=== PATIENT | female | born 1980 | race Caucasian/White ===

== ENCOUNTER 2020-06-06 14:37 | Outpatient (REF) | payer OTHER, SELFPAY ==
--- NOTE | ~2020-06-06 | US_ITS ---
EXAMINATION: US PELVIS, COMPLETE CLINICAL INFORMATION: Menorrhagia. COMPARISON: 02/16/2010 TECHNIQUE: Transabdominal and transvaginal imaging was performed. FINDINGS: LMP: 05/27/2020 Uterus is anteverted , measuring 10.7 x 5 x 6.8 cm. Heterogeneous echotexture of the uterine parenchyma. No focal marginated lesions are identified. There are nabothian cysts present in the cervix. Endometrial thickness 0.9 cm. Limited visualization of the ovaries due to bowel gas. Right ovary measures 2.9 x 2.3 x 2.8 cm. Volume 9.8 mL. Left ovary measures 2.4 x 2.1 x 2.2 cm. Volume 5.8 mL. The partially visualized ovaries grossly appear unremarkable. No free fluid in the cul-de-sac. US/US transvaginal IMPRESSION: Limited visualization of the uterus and ovaries due to bowel gas. Heterogeneous echotexture of the uterine parenchyma. No discrete focal lesions identified. Limited visualization of bilateral ovaries. No gross abnormality identified. Follow-up ultrasound for reassessment could be considered for better visualization, as clinically warranted.
--- NOTE | ~2020-06-06 | US_ITS ---
EXAMINATION: US PELVIS, COMPLETE CLINICAL INFORMATION: Menorrhagia. COMPARISON: 02/16/2010 TECHNIQUE: Transabdominal and transvaginal imaging was performed. FINDINGS: LMP: 05/27/2020 Uterus is anteverted , measuring 10.7 x 5 x 6.8 cm. Heterogeneous echotexture of the uterine parenchyma. No focal marginated lesions are identified. There are nabothian cysts present in the cervix. Endometrial thickness 0.9 cm. Limited visualization of the ovaries due to bowel gas. Right ovary measures 2.9 x 2.3 x 2.8 cm. Volume 9.8 mL. Left ovary measures 2.4 x 2.1 x 2.2 cm. Volume 5.8 mL. The partially visualized ovaries grossly appear unremarkable. No free fluid in the cul-de-sac. US/US pelvic complete IMPRESSION: Limited visualization of the uterus and ovaries due to bowel gas. Heterogeneous echotexture of the uterine parenchyma. No discrete focal lesions identified. Limited visualization of bilateral ovaries. No gross abnormality identified. Follow-up ultrasound for reassessment could be considered for better visualization, as clinically warranted.
== END 2020-06-06 14:38 | disposition home or self-care (01) ==
LOC: HO.US 14:37
PROVIDERS: PCP Internal Medicine; Visit Provider Internal Medicine
DX: N92.0 Excessive and frequent menstruation with regular cycle (principal)
CPT/HCPCS: 76830; 76856

== ENCOUNTER 2022-07-03 12:03 | Outpatient (REF) | payer OTHER, SELFPAY ==
[2022-07-03 13:45] LABS: MANUAL DIFF FLAG NO
[2022-07-03 13:55] LABS: Basophils Absolute Auto 0.1 X10*3/uL (0.0-0.2); Basophils Percent Auto 0.8 % (0-2); Eosinophils Absolute Auto 0.2 X10*3/uL (0.0-0.4); Eosinophils Percent Auto 1.9 % (0-4); Hematocrit 29.2 % (37.0-47.0); Hemoglobin 7.8 g/dl (12.0-16.0); Imm Gran Abs Auto 0.03 X10*3/uL (0.00-0.03); Imm Gran Pct Auto 0.4 % (0.0-0.4); Lymphocytes Absolute Auto 1.7 X10*3/uL (1.2-4.9); Lymphocytes Percent Auto 19.3 % (20-40); Mean Corpuscular HGB Conc 26.7 g/dl (31.0-35.0); Mean Corpuscular Hemoglobin 16.3 pg (27.0-33.0); Mean Platelet Volume 9.8 fL (9.4-12.3); Monocytes Absolute Auto 0.4 X10*3/uL (0.1-1.2); Monocytes Percent Auto 4.9 % (2-11); Neutrophils Absolute Auto 6.2 x10*3/uL (2.0-8.3); Neutrophils Percent Auto 72.7 % (45-73); Platelet Count 565 X10*3/uL (160-400); Red Blood Count 4.78 X10*6/uL (4.20-5.50); Red Cell Distribution Width 19.1 % (11.0-16.0); White Blood Count 8.5 X10*3/uL (4.8-10.8)
[2022-07-03 13:56] LABS: Mean Corpuscular Volume 61.1 fL (80.0-98.0)
[2022-07-03 14:23] LABS: Alanine Aminotransferase 27 U/L (0-31); Albumin Level 4.1 g/dL (3.5-5.0); Alkaline Phosphatase 65 U/L (39-117); Anion Gap 13 (12-20); Aspartate Amino Transferase 21 U/L (5-31); Bilirubin Total 0.4 mg/dL (0.0-1.0); Blood Urea Nitrogen 11 mg/dL (9-16); Calcium 9.6 mg/dL (8.4-10.2); Carbon Dioxide 27 mmol/L (22-29); Chloride 106 mmol/L (96-108); Estimated Glomerular Filt Rate > 60; Glucose Random 158 mg/dL (60-115); Potassium 4.5 mmol/L (3.3-5.1); Sodium 141 mmol/L (135-145); Total Protein 7.4 g/dL (6.5-8.0)
[2022-07-03 14:37] LABS: Ferritin 3 ng/mL (10-250)
== END 2022-07-03 12:04 | disposition home or self-care (01) ==
LOC: HO.10HDL 12:03
PROVIDERS: Visit Provider Internal Medicine
DX: R22.0 Localized swelling, mass and lump, head (principal); H92.02 Otalgia, left ear; D50.8 Other iron deficiency anemias
CPT/HCPCS: 36415; 80053; 82728; 85025

== ENCOUNTER 2022-08-19 13:20 | Outpatient (REF) | payer OTHER, SELFPAY | END 2022-08-19 13:21 | disposition home or self-care (01) | LOC: HO.MDS 13:20 | PROVIDERS: Visit Provider Internal Medicine | DX: D50.9 Iron deficiency anemia, unspecified (principal) | CPT/HCPCS: 96365; J1756 ==

== ENCOUNTER 2022-08-26 13:25 | Outpatient (REF) | payer OTHER, SELFPAY | END 2022-08-26 13:26 | disposition home or self-care (01) | LOC: HO.MDS 13:25 | PROVIDERS: Visit Provider Internal Medicine | DX: D50.9 Iron deficiency anemia, unspecified (principal) | CPT/HCPCS: 96365; J1756 ==

== ENCOUNTER 2022-09-02 13:03 | Outpatient (REF) | payer OTHER, SELFPAY | END 2022-09-02 13:04 | disposition home or self-care (01) | LOC: HO.MDS 13:03 | PROVIDERS: Visit Provider Internal Medicine | DX: D50.9 Iron deficiency anemia, unspecified (principal) | CPT/HCPCS: 96365; J1756 ==

== ENCOUNTER 2022-09-05 11:18 | Outpatient (REF) | payer OTHER, SELFPAY ==
[2022-09-05 13:11] LABS: MANUAL DIFF FLAG NO
[2022-09-05 13:17] LABS: Basophils Absolute Auto 0.1 X10*3/uL (0.0-0.2); Basophils Percent Auto 0.9 % (0-2); Eosinophils Absolute Auto 0.2 X10*3/uL (0.0-0.4); Eosinophils Percent Auto 3.2 % (0-4); Hematocrit 34.6 % (37.0-47.0); Hemoglobin 9.5 g/dl (12.0-16.0); Imm Gran Abs Auto 0.03 X10*3/uL (0.00-0.03); Imm Gran Pct Auto 0.5 % (0.0-0.4); Lymphocytes Absolute Auto 1.3 X10*3/uL (1.2-4.9); Lymphocytes Percent Auto 19.6 % (20-40); Mean Corpuscular HGB Conc 27.5 g/dl (31.0-35.0); Mean Corpuscular Hemoglobin 18.6 pg (27.0-33.0); Mean Corpuscular Volume 67.7 fL (80.0-98.0); Mean Platelet Volume 10.6 fL (9.4-12.3); Monocytes Absolute Auto 0.4 X10*3/uL (0.1-1.2); Monocytes Percent Auto 5.3 % (2-11); Neutrophils Absolute Auto 4.7 x10*3/uL (2.0-8.3); Neutrophils Percent Auto 70.5 % (45-73); Platelet Count 396 X10*3/uL (160-400); Red Blood Count 5.11 X10*6/uL (4.20-5.50); Red Cell Distribution Width 26.8 % (11.0-16.0); White Blood Count 6.6 X10*3/uL (4.8-10.8)
[2022-09-05 13:27] LABS: Estimated Average Glucose 85 mg/dL; Hemoglobin A1c % 4.6 %
== END 2022-09-05 11:19 | disposition home or self-care (01) ==
LOC: HO.10HDL 11:18
PROVIDERS: Visit Provider Internal Medicine
DX: D50.8 Other iron deficiency anemias (principal); F32.9 Major depressive disorder, single episode, unspecified; R42 Dizziness and giddiness; R55 Syncope and collapse; R73.01 Impaired fasting glucose
CPT/HCPCS: 36415; 83036; 85025

== ENCOUNTER 2022-09-10 13:30 | Outpatient (REF) | payer OTHER, SELFPAY | END 2022-09-10 13:31 | disposition home or self-care (01) | LOC: HO.MDS 13:30 | PROVIDERS: Visit Provider Internal Medicine | DX: D50.9 Iron deficiency anemia, unspecified (principal) | CPT/HCPCS: 96365; J1756 ==

== ENCOUNTER 2022-09-23 13:49 | Outpatient (REF) | payer OTHER, SELFPAY | END 2022-09-23 13:50 | disposition home or self-care (01) | LOC: HO.MDS 13:49 | PROVIDERS: Visit Provider Internal Medicine | DX: D53.9 Nutritional anemia, unspecified (principal) | CPT/HCPCS: 96365; J1756 ==

== ENCOUNTER 2022-10-01 12:51 | Outpatient (REF) | payer OTHER, SELFPAY | END 2022-10-01 12:52 | disposition home or self-care (01) | LOC: HO.MDS 12:51 | PROVIDERS: Visit Provider Internal Medicine | DX: D50.9 Iron deficiency anemia, unspecified (principal) | CPT/HCPCS: 96365; 99202; J1756 ==

== ENCOUNTER 2022-10-04 16:24 | Outpatient (REF) | payer OTHER, SELFPAY ==
--- NOTE | ~2022-10-04 | US_ITS ---
EXAMINATION: US PELVIS CLINICAL INFORMATION: Abnormal uterine and vaginal bleeding COMPARISON: None available. TECHNIQUE: Ultrasound of the pelvis is performed using both transabdominal and transvaginal transducers along with Doppler. Transvaginal imaging is performed due to inadequate visualization transabdominally. FINDINGS: Uterus: The uterus is anteverted, anteflexed and prominent size measuring 12.4 x 4.5 x 5.7. Previous measurement was 10.7 x 5 x 6.8 cm. Echogenicity is diffusely heterogeneous. No visible fibroid. Endometrium measures 0.8 cm. Incidental note is made of nabothian cysts. Adnexa: Both ovaries are visualized. There is normal color flow to the adnexa. There is no pelvic ascites or fluid collection. Right ovary measures 3.3 x 1.9 x 2.7 cm. For a volume of 8.9 mL. Previous measurement was 2.9 x 2.3 x 2.8 cm. Left ovary measures 2.6 x 1.9 x 3.2 cm. For a volume of 8.3 mL. Previous measurement was 2.4 x 2.1 x 2.2 cm. US/US pelvic and transvaginal IMPRESSION: Slight increase in size persistently enlarged and heterogeneous uterus without focal fibroid. Unremarkable ovaries.
== END 2022-10-04 16:25 | disposition home or self-care (01) ==
LOC: HO.US 16:24
PROVIDERS: PCP Internal Medicine; Visit Provider Obstetrics & Gynecology
DX: N93.9 Abnormal uterine and vaginal bleeding, unspecified (principal)
CPT/HCPCS: 76830; 76856

== ENCOUNTER 2023-01-07 10:01 | Outpatient (AMB) | payer OTHER, SELFPAY ==
[2023-01-07 10:30] VITALS: BP 122/74; BMI 40.0
--- NOTE | 2023-01-07 10:30 | MHC.OFFVIS ---
Intake Vital Signs 01/07/23 10:30 Height 5 ft Weight 205 lb BMI 40.0 BP 122/74 Intake Visit Reasons: Ultrasound follow up Signals Officer Required: No Allergies seafood Allergy (Mild, Verified 01/07/23 10:30) Anaphylaxis Is last menstrual period known: Yes Last menstrual period: 12/25/22 Post menopausal: No Patient : No HPI HPI Comments History of Present Illness Details Presenting for ultrasound follow-up, pelvic exam, co testing and EMB for AUB. The patient did not have her blood work done yet. PFSH Medical History History of cardiac monitoring Epileptic Surgical History Hx of section Hx of tubal ligation Social History Alcohol intake: never Patient Tobacco Use Status: Never used Tobacco Patient : No Female Reproductive History Menstrual Age of Menarche: 14 Date of last menstrual period: 12/25/22 control method: permanent sterilization Review of Systems Const All systems reviewed & are unremarkable except as noted in HPI and below Card Reports as per HPI Resp Reports as per HPI GI Reports as per HPI and Reports no additional complaints Reports as per HPI Physical Exam Vital Signs: Last Vital Signs BP 122/74 01/07/23 10:30 BMI result Body Mass Index 40.0 Const General: cooperative, healthy appearing and comfortable Chest Chest palpation & inspection: normal inspection of the chest and normal palpation of entire chest wall Breast/axilla inspection: normal inspection of the breasts and normal inspection of the axillae Breast/axilla palpation: normal palpation of the breasts, normal palpation of the axillae and no axillary lymphadenopathy Resp Effort & Inspection: normal respiratory effort Auscultation: clear to auscultation bilaterally Percussion: percussion normal Cardio Palpation: normal PMI Rate: regular rate Rhythm: regular rhythm Heart sounds: no murmurs and no rubs Peripheral pulses: Peripheral pulses 2+ throughout GI Inspection: Yes normal to inspection Palpation (GI): Soft to palpation, nontender, no guarding, not rigid and No hepatosplenomegaly present Percussion: Yes normal to percussion Auscultation: normal bowel sounds Rectal Exam - Female: deferred General: Yes bladder normal to palpation External Female Exam: No lesion Speculum Exam - Vagina: normal appearance of the vagina, normal palpation, normal vaginal discharge and not erythematous Speculum Exam - Cervix: normal appearance of the cervix and normal palpation Bimanual exam- vagina & uterus: normal bimanual exam, normal palpation, uterine size normal, bladder normal to palpation, consistency normal and normal palpation Bimanual Exam- Adnexa, other: normal adnexae, no masses and no tenderness Assessment & Plan Assessment & Plan (1) Abnormal uterine bleeding: Code(s): N93.9 - Abnormal uterine and vaginal bleeding, unspecified Plan: The patient requested to defer her Co testing an EMB till next visit. Discussed with the patient as of the ultrasound. Instructions given the patient to have her blood work done and schedule a follow-up appointment in 2 weeks for pelvic exam/co testing in EMB to complete the workup and discuss different options of treatment. All questions answered, the patient verbalized understanding Coding Level of Care Code Est Pt Level 3 (28052) Diagnoses Abnormal uterine bleeding N93.9
== END 2023-01-07 10:44 | disposition home or self-care (01) ==
PROVIDERS: PCP Internal Medicine; Visit Provider Obstetrics & Gynecology
DX: N93.9 Abnormal uterine and vaginal bleeding, unspecified (principal)
CPT/HCPCS: 99213

== ENCOUNTER → 2023-01-07 10:01 | Outpatient (BNVA) | payer OTHER, SELFPAY | PROVIDERS: PCP Internal Medicine; Visit Provider Obstetrics & Gynecology | DX: N93.9 Abnormal uterine and vaginal bleeding, unspecified (principal) | CPT/HCPCS: 99212 ==

== ENCOUNTER 2023-04-30 16:26 | Outpatient (REF) | payer OTHER, SELFPAY ==
[2023-04-30 16:42] LABS: Hematocrit 33.8 % (37.0-47.0); Hemoglobin 9.8 g/dl (12.0-16.0); Mean Corpuscular Hemoglobin 19.3 pg (27.0-33.0); Mean Corpuscular Volume 66.7 fL (80.0-98.0); Mean Platelet Volume 10.2 fL (9.4-12.3); Platelet Count 469 X10*3/uL (160-400); Red Blood Count 5.07 X10*6/uL (4.20-5.50); White Blood Count 9.1 X10*3/uL (4.8-10.8)
[2023-04-30 17:18] LABS: HCG Quantitative < 2 mIU/mL; TSH reflex Free T4 1.34 uIU/mL (0.32-4.0)
[2023-05-01 07:13] LABS: Prolactin 11.4 ng/mL
== END 2023-04-30 16:27 | disposition home or self-care (01) ==
LOC: HO.LAB 16:26
PROVIDERS: PCP Internal Medicine; Visit Provider Obstetrics & Gynecology
DX: N93.9 Abnormal uterine and vaginal bleeding, unspecified (principal)
CPT/HCPCS: 36415; 84146; 84443; 84702; 85027

== ENCOUNTER 2023-05-01 09:58 | Outpatient (REF) | payer OTHER, SELFPAY ==
[2023-05-01 15:39] LABS: CT PCR NOT DETECTED (Not Detect.); NG PCR NOT DETECTED (Not Detect.)
[2023-05-09 06:06] LABS: HPV mRNA E6/E7 rflx Not Detected (Not Detected)
== END 2023-05-01 09:59 | disposition home or self-care (01) ==
LOC: HO.LNP 09:58
PROVIDERS: PCP Internal Medicine; Visit Provider Obstetrics & Gynecology
DX: N93.9 Abnormal uterine and vaginal bleeding, unspecified (principal); Z32.02 Encounter for pregnancy test, result negative
CPT/HCPCS: 0353U; 58100; 81025; 87624; 88142; 88305

== ENCOUNTER 2023-05-01 09:58 | Outpatient (AMB) | payer OTHER, SELFPAY ==
--- NOTE | 2023-05-01 10:01 | A.OFFVIS_ITS ---
Intake Vital Signs 05/01/23 10:11 Height 5 ft Weight 186 lb BMI 36.3 BP 122/72 Intake Visit Reasons: Cotest/EMB Strategic Client Executive Required: No Information Interpreted: non-clinical & clinical Production Operations Inspector: Production Operations Inspector Present (Aidyn) Allergies seafood Allergy (Mild, Verified 05/01/23 10:12) Anaphylaxis Is last menstrual period known: Yes Last menstrual period: 04/15/23 Post menopausal: No Patient : No HPI HPI Comments History of Present Illness Details Presenting for EMB, co testing and GC/CT for abnormal uterine bleeding PFSH Medical History History of cardiac monitoring Epileptic Surgical History Hx of section Hx of tubal ligation Social History Alcohol intake: never Patient Tobacco Use Status: Never used Tobacco Female Reproductive History Menstrual Age of Menarche: 14 Date of last menstrual period: 04/15/23 control method: permanent sterilization Office Procedures Endometrial Biopsy Details: The patient was counseled regarding the indication and benefits of endometrial sampling to rule out endometrial pathology including not limited to endometrial hyperplasia or endometrial cancer and others; The alternatives (Either do nothing vs. hysteroscopy D&C) & the risks were discussed with the patient including but not limited: pain, uterine perforation, bleeding, infection, possible injury to bladder, bowel, ureter, possible need for blood transfusion with all its possible risks. The patient verbalized understanding all questions answered and signed consent. Urine test done in the office was negative The patient was placed into the dorsal lithotomy position; a speculum was ins erted in the vagina. Using aseptic technique for the procedure, the cervix was cleansed with Betadine. The anterior lip of the cervix was grasped with a single tooth tenaculum. The uterus was sounded to 9 cm with a 4 mm Pipelle was used. Tissues samples were obtained and placed in formalin, in a patient labeled container and sent to the pathology department. At the end of the procedure, there was minimal bleeding noted The patient tolerated the procedure well and was discharged in good condition with the following instructions: Nothing in the vagina until the bleeding stops. No sex until the bleeding stops, to call if any of the following occurs: fever (>100.4), flu-like symptoms, abdominal pain, heavy bleeding, four smelling vaginal discharge. The patient was instructed to schedule a Follow up appointment in 2 weeks to discuss pathology results of the biopsy and treatment options. This note was generated with a voice recognition program. Some errors may have been overlooked during the review of this note. Sometimes these errors may affect the content or meaning of a given sentence. [id number] Biopsy Results AMB Test Urine AMB Test Urine Negative Last Edit by JUAN PABLO Vasquez on 05/01/23 10:13 Assessment & Plan Assessment & Plan (1) Abnormal uterine bleeding: Code(s): N93.9 - Abnormal uterine and vaginal bleeding, unspecified Plan: GC/CT taken, co testing done. EMB done, see procedure note Orders: Orders AMB HCG Urine Test Today Z32.02 - Encounter for test, result negative AMB Endometrial Biopsy Today N93.9 - Abnormal uterine and vaginal bleeding, unspecified Coding Level of Care Code Est Pt Level 3 (54336) Procedure Only Diagnoses Abnormal uterine bleeding N93.9 CPT Codes Endometrial Biopsy - CPT: 79268-Zaxjwqcjjgd Biopsy ([id number])
[2023-05-01 10:11] VITALS: BP 122/72; BMI 36.3
== END 2023-05-01 10:44 | disposition home or self-care (01) ==
PROVIDERS: PCP Internal Medicine; Visit Provider Obstetrics & Gynecology
DX: N93.9 Abnormal uterine and vaginal bleeding, unspecified (principal); Z32.02 Encounter for pregnancy test, result negative
CPT/HCPCS: 58100

== ENCOUNTER 2023-05-05 13:01 | Outpatient (REF) | payer OTHER, SELFPAY ==
[2023-05-05 14:16] LABS: Hematocrit 31.3 % (37.0-47.0); Hemoglobin 9.1 g/dl (12.0-16.0); Mean Corpuscular HGB Conc 29.1 g/dl (31.0-35.0); Mean Corpuscular Hemoglobin 19.4 pg (27.0-33.0); Mean Corpuscular Volume 66.7 fL (80.0-98.0); Mean Platelet Volume 10.5 fL (9.4-12.3); Platelet Count 410 X10*3/uL (160-400); Red Blood Count 4.69 X10*6/uL (4.20-5.50); Red Cell Distribution Width 16.2 % (11.0-16.0); White Blood Count 5.6 X10*3/uL (4.8-10.8)
== END 2023-05-05 13:02 | disposition home or self-care (01) ==
LOC: HO.LAB 13:01
PROVIDERS: PCP Internal Medicine; Visit Provider Obstetrics & Gynecology
DX: Z32.02 Encounter for pregnancy test, result negative (principal); N93.9 Abnormal uterine and vaginal bleeding, unspecified; N84.0 Polyp of corpus uteri
CPT/HCPCS: 36415; 81025; 85027; 99212

== ENCOUNTER 2023-05-05 13:16 | Outpatient (AMB) | payer OTHER, SELFPAY ==
--- NOTE | 2023-05-05 13:25 | MHC.OFFVIS ---
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 The patient's abnormal uterine bleeding workup and options of treatment. The following workup was done.: On 04/20 H&H= was 9.8/33.8, repeated today was 9.1/31.3 TSH, prolactin, hCG, GC and chlamydia were negative. Endometrial biopsy pathology showed the following: Endometrium, biopsy: Benign late secretory endometrium with focal inactive glands and focal features of chronic endometritis; no atypia or carcinoma. Comment: Some fragments may be derived from benign functional polyps Co testing results is still pending. Mamm[facility] at [facility] Pelvic ultrasound showed the following: Uterus: The uterus is anteverted, anteflexed and prominent size measuring 12.4 x 4.5 x 5.7. Previous measurement was 10.7 x 5 x 6.8 cm. Echogenicity is diffusely heterogeneous. No visible fibroid. Endometrium measures 0.8 cm. Incidental note is made of nabothian cysts. Adnexa: Both ovaries are visualized. There is normal color flow to the adnexa. There is no pelvic ascites or fluid collection. Right ovary measures 3.3 x 1.9 x 2.7 cm. For a volume of 8.9 mL. Previous measurement was 2.9 x 2.3 x 2.8 cm. Left ovary measures 2.6 x 1.9 x 3.2 cm. For a volume of 8.3 mL. Previous measurement was 2.4 x 2.1 x 2.2 cm. [facility] Medical History History of cardiac monitoring Epileptic Surgical History Hx of section Hx of tubal ligation Social History Alcohol intake: never Patient Tobacco Use Status: Never used Tobacco Female Reproductive History Menstrual Age of Menarche: 14 Date of last menstrual period: 05/01/23 Review of Systems Const All systems reviewed & are unremarkable except as noted in HPI and below Physical Exam Vital Signs: Last Vital Signs BP 118/80 05/05/23 13:26 BMI result Body Mass Index 36.3 General: Yes no CVA tenderness External Female Exam: normal external appearance and normal appearance of the urethra Speculum Exam - Vagina: normal appearance of the vagina, normal palpation, no lesions, no masses and other (Blood per vagina) Speculum Exam - Cervix: normal appearance of the cervix, normal palpation, no lesions, no masses, nontender and Other cervical findings present (No evidence of active vaginal bleeding) Bimanual exam- vagina & uterus: normal bimanual exam, normal palpation, uterine size normal, normal palpation, uterine shape normal, No Cervical tenderness present and non-tender Bimanual Exam- Adnexa, other: normal adnexae Back/Spine/Pelvis Back: no CVA tenderness Results AMB Test Urine AMB Test Urine Negative Last Edit by Alexandrea Munoz CMA on 05/05/23 14:29 Assessment & Plan Assessment & Plan (1) Abnormal uterine bleeding: Comment: Anemia Code(s): N93.9 - Abnormal uterine and vaginal bleeding, unspecified Plan: Urine test done in the office was negative. Iron sulfate 325 mg p.o. q.d. Discussed with the patient the results of the work up done and options of treatment including Lysteda, BCP's, Mirena IUD, endometrial ablation and hysterectomy. All pros, cons, risks and benefits if each option was discussed with the patient and the patient decided to go ahead with Lysteda , so a more detailed discussion re: Lysteda including mechanism of action, benefits, risks including but not limited to thrombosis and strokes, Instructions were given on how to use, 2 tablets p.o. 3 times a day day 1 up to 3-5 days of menses and to call or go to emergency room in case of persistence of heavy vaginal bleeding and to schedule a 3 months follow-up appointment. The patient verbalized understanding and agreed with the plan. (2) Endometrial polyp: Code(s): N84.0 - Polyp of corpus uteri Plan: Discussed with the patient the finding on endometrial biopsy showing features of functional benign polyp, recommended hysteroscopy D&C possible polypectomy/myomectomy, the patient would like to think about it and get back to me Orders: Orders AMB HCG Urine Test Today Z32.02 - Encounter for test, result negative Medications: New tranexamic acid Start 1st day of menses and take it up to 3-5 days of menses. 1,300 mg (2 x 650 mg) PO TID 5 days 30 tabs 2RF Coding Level of Care Code Est Pt Level 3 (05502) Diagnoses Abnormal uterine bleeding N93.9 Endometrial polyp N84.0
[2023-05-05 13:26] VITALS: BP 118/80; BMI 36.3
== END 2023-05-05 14:28 | disposition home or self-care (01) ==
PROVIDERS: PCP Internal Medicine; Visit Provider Obstetrics & Gynecology
DX: N93.9 Abnormal uterine and vaginal bleeding, unspecified (principal); N84.0 Polyp of corpus uteri; Z32.02 Encounter for pregnancy test, result negative
CPT/HCPCS: 99213

== ENCOUNTER → 2023-08-06 07:19 | Outpatient (BNV) | payer OTHER, SELFPAY | PROVIDERS: Emergency Provider Emergency Medicine Emergency Medical Services; Visit Provider Internal Medicine Cardiovascular Disease | DX: R00.1 Bradycardia, unspecified (principal) | CPT/HCPCS: 93010 ==

== ENCOUNTER 2023-08-06 21:19 | Emergency (ER) | payer OTHER, SELFPAY ==
--- NOTE | ~2023-08-06 | CT_ITS ---
EXAMINATION: CT HEAD WITHOUT CONTRAST CLINICAL INFORMATION: Fall, head injury, rule out fracture and bleed. COMPARISON: No similar priors. TECHNIQUE: Contiguous axial imaging was performed from the skull base to vertex without intravenous administration of contrast. This CT examination was performed using dose optimization techniques as appropriate, variously including the following: *Automated exposure control *Adjustment of mA and/or kV according to patient size (this includes techniques or standardized protocols for targeted exams where dose is matched to indication/reason for exam; i.e. extremities or head) *Use of iterative reconstruction technique DLP: 620 mGy-cm FINDINGS: There is no evidence of acute intracranial hemorrhage or edematous territorial infarction. There is no abnormal attenuation within the brain parenchyma. Saldivar-white matter differentiation is preserved. The ventricles are normal in size and configuration. No evidence for obstructive hydrocephalus. No abnormal mass effect or midline shift. No extra-axial fluid collections. No acute soft tissue or osseous abnormalities. The mastoid air cells and paranasal sinuses are clear. CT/CT head/brain wo IV con IMPRESSION: No evidence of acute intracranial hemorrhage or edematous territorial infarction.
--- NOTE | 2023-08-06 07:19 | ECG_ITS ---
Test Reason : STROKE Blood Pressure : / mmHG Vent. Rate : 050 BPM Atrial Rate : 050 BPM P-R Int : 160 ms QRS Dur : 104 ms QT Int : 436 ms P-R-T Axes : 021 014 013 degrees QTc Int : 397 ms Sinus bradycardia Minimal voltage criteria for LVH, may be normal variant ( Osiel product ) Borderline ECG No previous ECGs available Referred By: Aurelio Noland Electronically Signed By:JOHNNA REDDY MD
[2023-08-06 21:25] VITALS: BP 134/58; BP 150/84; PULSE 54; PULSE 60; RESP 20; TEMP 37.4; O2SAT 99; BMI 37.3
[2023-08-06 21:25] LABS: Prothrombin Time Whole Bld POC 13.2 sec (11.1-13.5); ~PT, ~INR - Anti Coag Clinic 1.1 (0.9-1.1)
[2023-08-06 21:27] LABS: Glucose, Whole Blood 110 mg/dL (60-115)
--- NOTE | 2023-08-06 21:29 | ED.FALL ---
HPI - Fall General Chief Complaint: Asthma Stated Complaint: neuro defecit,facial droop,slurred speech Time Seen by Provider: 08/06/23 21:27 Source: patient and family (Daughter, Miriam) Mode of arrival: EMS Limitations: other (Altered mental status) History of Present Illness HPI Narrative: 43-year-old female history of seizure who presents emergency department for evaluation of altered mental status and possible stroke. The information came from the patient's daughter Miriam. She states that her mother gets episodes where can not talk, her hands and feet get crampy and she will sometimes pass out. Around 19:30 hours and is able to break the episode by pudding an alcohol soaked pad underneath her mother's nose and this woke her up. At around 20:00 hours the mother walked into the living room, the daughter knew that she was having another episode since her hands looked very crampy, the patient then fell and struck her head on a carpeted floor. The daughter states that the episode was preceded by a headache. The ambulance was called and the paramedics felt that the patient had a facial droop activated a stroke alert. 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 I evaluated the patient on the low pressure boiler tender stretcher, she was oriented to person, she knew her age, but she did not know the month. She was slow to answer questions , she appears to be anxious and is hyperventilating, no localizing findings on neurologic exam. Related Data Previous Rx's ?Medication ?Instructions ?Recorded tranexamic acid 650 mg tablet 1,300 mg (2 x 650 mg) PO TID 5 05/05/23 days #30 tabs Allergies Allergy/AdvReac Type Severity Reaction Status Date / Time seafood Allergy Mild Anaphylaxis Verified 08/06/23 21:30 Review of Systems Review of Systems: Yes Unobtainable due to mental status PMFSH Past Medical History Medical History History of cardiac monitoring Epileptic Surgical History Hx of section Hx of tubal ligation Social History Social History Alcohol intake: never Patient Tobacco Use Status: Never used Tobacco Smoked in Last 30 Days: No Use of substances other than those prescribed or required for medical reasons: No Do you have a plan to hurt others: No Plan Physical Exam Vital Signs: Vital Signs: Last Vital Signs Temp 99.3 F 08/06/23 21:25 Pulse 54 08/06/23 21:25 Resp 20 08/06/23 21:25 BP 134/58 L 08/06/23 21:25 Pulse Ox 99 08/06/23 21:25 O2 Del Method Room Air 08/06/23 21:25 BMI result Body Mass Index 37.3 Vital signs were normal Exam: General: Awake, anxious, hyperventilating, in no distress Head: Normocephalic, atraumatic EENT: PERRL, Lids normal, sclera normal, conjunctiva normal, nose normal , ears normal, throat without erythema or exudates Neck: Supple, no adenopathy Lung: breath sounds symmetric, no wheezing, rales or rhonchi Chest: symmetric movement, nontender Heart: regular rate and rhythm, normal S1, S2 no murmurs or rubs Abdomen: soft, non-tender, nondistended, normal bowel sounds Back: no vertebral tenderness, no CVAT Extremities: no deformities, moves all extremities symmetrically Neuro: Awake, alert, oriented, slow speech, cranial nerves intact, moves all extremities symmetrically Psych: Anxious NIH Stroke Scale Internal: Initial- Upon Arrival Level of Consciousness: Alert Level of Consciousness Questions: Answers one question correctly Level of Consciousness Commands: Performs both tasks correctly Best Gaze: Normal Visual: No visual loss Facial Palsy: Normal Motor Arm (Right): No drift Motor Arm (Left): No drift Motor Leg (Right): No drift Motor Leg (Left): No drift Limb Ataxia: Absent Sensory: Normal Best Language: No aphasia Dysarthia: Normal Extinction and Inattention: No abnormality Score: 1 Medications Administered Discontinued Medications Generic Name Dose Route Start Last Admin Trade Name Freq PRN Reason Stop Dose Admin Ketorolac Tromethamine 15 mg 08/06/23 21:28 08/06/23 21:42 Ketorolac Tromethamine 15 Mg/Ml Vial IVPUSH 08/06/23 21:29 15 mg ONCE STA Administration Lorazepam 1 mg 08/06/23 21:28 08/06/23 21:42 Lorazepam 2 Mg/Ml Vial IVPUSH 08/06/23 21:29 1 mg STAT STA Administration Medical Decision Making Medical Decision Making [facility] Narrative: 43-year-old female history of seizure who presents emergency department for evaluation of altered mental status and possible stroke. Patient's presentation however is more consistent with anxiety and hyperventilation syndrome. Patient had an episode that the daughter states that she was able to break by putting alcohol soaked pad underneath her mother's nose. The patient then had a 2nd episode at 20:00 hours where she walked into the room, her hands and cramping, she then passed out and struck her head on the carpeted floor. Vital signs were normal except for an elevated respiratory rate. Hyperventilation/anxiety syndrome. Differential diagnosis: ?Includes but is not limited to stroke, near syncope, hyperventilation syndrome, arrhythmia, anemia, electrolyte abnormalities Following evaluation was ordered: CT scan of the brain without IV contrast, CBC, CMP, beta-hCG Patient was initially treated with the following: Ativan 1 mg IV, Toradol 15 mg IV Course: 00:06 My interpretation patient's laboratory evaluation as follows: Microcytic anemia with an H&H of 8.1 and 28.9 and MCV 61.8. CMP was normal. Beta-hCG was below detectable limits. Twelve EKG was unremarkable. CT scan of the brain revealed no acute findings. Based on the daughter's description of the patient's symptoms I believe the patient has hyperventilation syndrome/anxiety attack is the cause and I did discuss this with her and her family. The patient did feel significantly better after the above treatment. The patient was given printed and verbal instructions discharged home. Admission/Observation Consideration of admission/observation: Escalation of care including admission/observation considered Lab Data [facility] Lab Attestation statement: I reviewed the patient's lab results. 08/06/23 21:41 08/06/23 21:41 Labs: Lab Results 08/06/23 08/06/23 Range/Units 21:20 21:41 WBC 8.6 (4.8-10.8) X10*3/uL RBC 4.53 (4.20-5.50) X10*6/uL Hgb 8.1 L (12.0-16.0) g/dl Hct 28.0 L (37.0-47.0) % MCV 61.8 L (80.0-98.0) fL MCH 17.9 L (27.0-33.0) pg MCHC 28.9 L (31.0-35.0) g/dl RDW 17.5 H (11.0-16.0) % Plt Count 411 H (160-400) X10*3/uL MPV 10.5 (9.4-12.3) fL Immature Gran % (Auto) 0.3 (0.0-0.4) % Neut % (Auto) 62.1 (45-73) % Lymph % (Auto) 27.1 (20-40) % Brewster % (Auto) 7.0 (2-11) % Eos % (Auto) 2.8 (0-4) % Baso % (Auto) 0.7 (0-2) % Lymph # (Auto) 2.3 (1.2-4.9) X10*3/uL Brewster # (Auto) 0.6 (0.1-1.2) X10*3/uL Eos # (Auto) 0.2 (0.0-0.4) X10*3/uL Baso # (Auto) 0.1 (0.0-0.2) X10*3/uL Abs Immat Gran (auto) 0.03 (0.00-0.03) X10*3/uL Absolute Neuts (auto) 5.4 (2.0-8.3) x10*3/uL Absolute Nucleated RBC 0.000 (0.0-0.012) X10*3/uL Nucleated RBC % (auto) 0.0 (0.0-0.2) /100WBC Smear Tech's Comments VERIFIED Whole Blood PT 13.2 (11.1-13.5) sec Whole Blood INR 1.1 (0.9-1.1) Sodium 140 (135-145) mmol/L Potassium 3.8 (3.3-5.1) mmol/L Chloride 110 H (96-108) mmol/L Carbon Dioxide 24 (22-29) mmol/L Anion Gap 10 L (12-20) BUN 16 (9-16) mg/dL Creatinine 0.71 (0.5-1.4) mg/dL Estim Creat Clear Calc 101.0 Estimated GFR > 60 POC Glucose 110 (60-115) mg/dL Random Glucose 113 (60-115) mg/dL Calcium 9.5 (8.4-10.2) mg/dL Total Bilirubin 0.1 (0.0-1.0) mg/dL AST 11 (5-31) U/L ALT 13 (0-31) U/L Alkaline Phosphatase 55 (39-117) U/L Total Protein 7.5 (6.5-8.0) g/dL Albumin 4.1 (3.5-5.0) g/dL Beta HCG, Quant < 2 mIU/mL Independent Interpretation I performed an independent interpretation of an: EKG Interpretation: My independent interpretation patient's 12 EKG done at 21:42 hours is as follows: Sinus bradycardia with a rate of 50, normal AR interval, prolonged QRS of 104 milliseconds, normal QTC no ST segment elevation, no ST segment depression, no significant T-wave abnormalities, no PACs, no PVCs Radiology Impression Discussion of test interpretation with radiology: I have reviewed the radiologist's reading. Radiologist Impression: CT head/brain wo IV con IMPRESSION: No evidence of acute intracranial hemorrhage or edematous territorial infarction. Dictated By: Ashanti Samuel Independent Historian Clinical information obtained from an independent historian. History obtained from or confirmed by: Other (Daughter) Discharge Plan Discharge Clinical Impression: Fall, Closed head injury, Acute hyperventilation syndrome Patient Disposition: Home, Self-Care Instructions: Hyperventilation (ED), Head Injury (ED) Additional Instructions: The CT scan of your head revealed no skull fracture, bleeding in the brain or stroke which is reassuring. Your blood work was normal except for anemia. You may have iron deficient anemia and I recommend that you take the [id number]-[id number] iron supplement called ferrous sulfate 325 mg, 3 times a day for 3 months to see if this improves your anemia. Your symptoms may be caused by hyperventilation syndrome. Please follow the head injury instructions. Follow-up with your doctor in 2 days. Please return to the emergency department if your symptoms get worse or if you develop any symptoms that are concerning to you. Prescriptions: No Action tranexamic acid 650 mg tablet 1,300 mg PO TID 5 Days Qty: 30 2RF Rx Instructions: Start 1st day of menses and take it up to 3-5 days of menses. Print Language: Sami
--- NOTE | 2023-08-06 21:30 | PC.NURSE ---
pt jenaroa reported by daughter that at home pt walked into bedroom and had near syncope episode collapsing to floor +headstrike on rug without loc per daughter. pt on arrival does not have any facial droop/focal deficits. pt is axox4 speaking clear sentences. vss. pt brought to room [address] serrano. pt changed into hospital gown placed on heart monitor labs drawn ekg obtained. pt in room is speaking full sentences identifying substernal cp/sob. resp even and unlabored sats 98% on RA. PERRLA. pt taken to ct scan.
[2023-08-06] MEDS: Ketorolac Tromethamine 15 MG/ML VIAL IVPUSH (21:42)
[2023-08-06] MEDS: LORazepam 2 MG/ML VIAL 1 MG IVPUSH (21:42)
[2023-08-06 22:06] LABS: Hemoglobin 8.1 g/dl (12.0-16.0); Imm Gran Abs Auto 0.03 X10*3/uL (0.00-0.03); Imm Gran Pct Auto 0.3 % (0.0-0.4); MANUAL DIFF FLAG SCAN; Mean Corpuscular Hemoglobin 17.9 pg (27.0-33.0); Red Blood Count 4.53 X10*6/uL (4.20-5.50); SCAN SMEAR FLAG 1
[2023-08-06 22:08] LABS: Basophils Absolute Auto 0.1 X10*3/uL (0.0-0.2); Basophils Percent Auto 0.7 % (0-2); Eosinophils Absolute Auto 0.2 X10*3/uL (0.0-0.4); Eosinophils Percent Auto 2.8 % (0-4); Lymphocytes Absolute Auto 2.3 X10*3/uL (1.2-4.9); Lymphocytes Percent Auto 27.1 % (20-40); Mean Corpuscular HGB Conc 28.9 g/dl (31.0-35.0); Mean Platelet Volume 10.5 fL (9.4-12.3); Monocytes Absolute Auto 0.6 X10*3/uL (0.1-1.2); Neutrophils Absolute Auto 5.4 x10*3/uL (2.0-8.3); Neutrophils Percent Auto 62.1 % (45-73); Platelet Count 411 X10*3/uL (160-400); Red Cell Distribution Width 17.5 % (11.0-16.0); White Blood Count 8.6 X10*3/uL (4.8-10.8)
[2023-08-06 22:13] LABS: Alanine Aminotransferase 13 U/L (0-31); Albumin Level 4.1 g/dL (3.5-5.0); Alkaline Phosphatase 55 U/L (39-117); Anion Gap 10 (12-20); Aspartate Amino Transferase 11 U/L (5-31); Bilirubin Total 0.1 mg/dL (0.0-1.0); Blood Urea Nitrogen 16 mg/dL (9-16); Calcium 9.5 mg/dL (8.4-10.2); Carbon Dioxide 24 mmol/L (22-29); Chloride 110 mmol/L (96-108); Estimated Glomerular Filt Rate > 60; Glucose Random 113 mg/dL (60-115); Potassium 3.8 mmol/L (3.3-5.1); Sodium 140 mmol/L (135-145); Total Protein 7.5 g/dL (6.5-8.0)
[2023-08-06 22:16] LABS: HCG Quantitative < 2 mIU/mL
[2023-08-06 22:29] LABS: Mean Corpuscular Volume 61.8 fL (80.0-98.0); PLT ABN DIST 1
[2023-08-06 22:43] LABS: SLIDE REVIEW VERIFIED
--- NOTE | 2023-08-06 23:54 | PC.NURSE ---
pt reports sx have resolved. pt ambulated to bathroom with steady gait nad. pt reports she has mild headache (07/22) otherwise denies cp/sob/n/v/d. pt requests food. awaiting ed provider. family at bedside. call wing within reach.
[2023-08-07 00:47] VITALS: BP 124/53; PULSE 61; RESP 16; TEMP 36.8; O2SAT 99
[2023-08-07 00:48] VITALS: BP 124/53; PULSE 62; RESP 16; TEMP 36.8; O2SAT 99
== END 2023-08-07 00:49 | disposition home or self-care (01) ==
PROVIDERS: Emergency Provider Emergency Medicine Emergency Medical Services
DX: S09.90XA Unspecified injury of head, initial encounter (principal); F45.8 Other somatoform disorders; R00.1 Bradycardia, unspecified; R41.82 Altered mental status, unspecified; R26.81 Unsteadiness on feet; W01.10XA Fall on same level from slipping, tripping and stumbling with subsequent striking against unspecified object, initial encounter; Y93.9 Activity, unspecified; Y92.9 Unspecified place or not applicable; Y99.8 Other external cause status; Z79.899 Other long term (current) drug therapy
CPT/HCPCS: 36415; 70450; 80053; 82947; 84702; 85025; 85610; 93005; 96374; 96375; 99284; 99285; J1885; J2060

== ENCOUNTER 2024-12-22 10:46 | Day surgery (SDC) | payer OTHER, SELFPAY ==
--- OUTSIDE RECORDS SUMMARY | 2024-12-03 11:51 | XMS_ITS | Encounter Summary ---
Author Organization [facility] Address [address] [place] [id number] Phone Care Team Providers Care Surgical Elastic Knitter Hand Frame Name Role Phone Karen Franco MD Primary Care Provider Encounter Details Date Type Department Care Team (Late st Contact Info) Description 12/11/2022 Procedure Pass [facility] [address] [place] [address] Social History Tobacco Use Types Packs/Day Years Used Date Smoking Tobacco: Never Assessed Education Answer Date Recorded Are you interested in more education? Not on malcolm e 10/23/2022 Are you concerned about learning? Not on file 10/23/2022 No 10/23/2022 No 10/23/2022 Digital Access Answer Date Recorded No 10/23/2022 No 10/23/2022 Reliable internet access at home? Not on file 10/23/2022 Device with a working camera? Not on file Intimate Partner Violence Answer Date R ecorded Are you denied basic needs s uch as food, clothing, or medical care? No 12/11/2022 In the past 12 months have y ou been in a relationship with a person who hurts, threatens, or tries to control you? No 12/11/2022 Are you denied basic needs s uch as food, clothing, or medical care? No 12/11/2022 In the past 12 months have y ou been in a relationship with a person who hurts, threatens, or tries to control you? No 12/11/2022 Comments Unknown Sex and Gender Information Value Date Recorded Sex Assigned at Not on file Legal Sex Female 9:47 AM EDT Gender Identity Not on file Sexual Orientation Not on file documented as of this encounter Plan of Treatment Not on file documented as of this encounter Visit Diagnoses Not on filedocumented in this encounter Care Teams Surgical Elastic Knitter Hand Frame Relationship Specialty Start Date End Date Karen Franco MD [address] [place] [address] [place] [address] PCP - General 12/11/22 documented as of this encounter Additional Source Comments The information contained in this document represents components of the legal health record. It is not the complete legal health record.[facility]
--- OUTSIDE RECORDS SUMMARY | 2024-12-03 11:51 | XMS_ITS | Clinical Summary ---
Author Organization [facility] Address [address] [place] [address] Care Team Providers Care Animal Herder Name Role Phone Karen Velazquez MD Primary Care Provider [phone] Social History Tobacco Use Types Packs/Day Years Used Date Smoking Tobacco: Never Assessed Comments Unknown Sex and Gender Information Value Date Recorded Sex Assigned at Not on file Legal Sex Female 2:19 AM EST Gender Identity Not on file Sexual Orientation Not on file Plan of Treatment Health Maintenance Due Date Last Done Comments DTaP,Tdap,and Td Vaccines (1 - Tdap) 2000 Hepatitis B Vaccines (1 of 3 - 19+ 3-dose series) 2000 Cervical Cancer Screening: P ap Smear 2002 Breast Cancer Screening 09/02/2023 09/01/2021 COVID-19 Vaccine ( - 2023-2 5 season) 2023 Depression Screening 04/14/2024 Influenza Vaccine (#1) 2024 HIB Vaccines Aged Out No longer eligi ble based on patient's age to complete this topic HPV Vaccines Aged Out No longer eligi ble based on patient's age to complete this topic Hepatitis A Vaccines Aged Out No long er eligible based on patient's age to complete this topic IPV Vaccines Aged Out No longer eligi ble based on patient's age to complete this topic MMR Vaccines Aged Out No longer eligi ble based on patient's age to complete this topic Meningococcal ACWY Vaccine Aged Out N o longer eligible based on patient's age to complete this topic Meningococcal B Vaccine Aged Out No l onger eligible based on patient's age to complete this topic Pneumococcal Vaccine: Pediat rics (0 to 5 Years) and At-Risk Patients (6 to 49 Years) Aged Out No longer eligi ble based on patient's age to complete this topic RSV Immunization Patients Un simone 20 months Aged Out No longer eligible b ased on patient's age to complete this topic Varicella Vaccines Aged Out No longer eligible based on patient's age to complete this topic Procedures Procedure Name Priority Date/Time Associated Diagnosis Comments [facility] SCREENING DIGITAL Routine 09/01/2021 11:16 AM EDT Encounter for screening mammogram for malignant neoplasm of breast from Last 3 Months or Most Recently Relevant to Health Maintenance Results * [facility] SCREENING DIGITAL (09/01/2021 11:16 AM EDT) Anatomical Region Laterality Modality Mammography 08/30/2021 9:02 AM EDT Narrative 09/01/2021 11:16 AM EDT [facility] Diagnostic Imaging Department [address] [place] [address] Patient: DIANNE KEBEDE./Age/Sex: 1980 - 41 - F Unit#: [id number] [facility]emonic/Ordering Site: [facility] Ordering Physician: KAREN VELAZQUEZ MD [facility] Screening Digital - 09/01/21 - 1018 EXAM: [facility] Screening Digital EXAM DATE AND TIME: 09/01/2021 10:19 AM HISTORY: Baseline screening mammography COMPARISON: None TECHNIQUE: CC and MLO views of both breasts were obtained using full field digital mammography. Bilateral digital breast tomosynthesis was performed in the MLO projection. Computer aided detection with the [employer] 7.2-H was employed. TISSUE DENSITY: b. There are scattered areas of fibroglandular density. FINDINGS: There is a macrolobulated partially obscured mass measuring 9 x 13 x 13 mm at the 12 o'clock position of the left breast. There is a intramammary lymph node with clearly depicted fatty desiree in the posterior superior left breast. There are benign calcifications present bilaterally. No grouped microcalcifications or areas of architectural distortion are seen. The skin and vascularity are unremarkable. IMPRESSION: Macrolobulated mass lesion at the 12 o'clock position of the left breast measuring 9 x 13 x 13 mm requiring CC tomographic imaging. Ultrasound of the left breast will be performed pending evaluation with CC tomography. A negative mammogram in the presence of a clinically suspicious palpable abnormality does not preclude the possibility of malignancy or alter the indications for biopsy. BI-RADS: Category 0: Incomplete - Need Additional Imaging Evaluation RECOMMENDATION(S): 1: Special mammographic view(s) needed LEFT as soon as possible [id number], [id number] 3340F, 7025F Dictating Physician: NINI COPELAND MD Electronically Signed by: NINI COPELAND MD Dic Date/Time: 09/01/21 1104 Sign date/Time: 09/01/21 1116 Procedure Note Ericka Copeland MD - 04/03/2022 [facility] Diagnostic Imaging Department [address] [place] [address] [id number] Patient: KEBEDEDIANNE D.O.B./Age/Sex: 1980 - 41 - F Unit#: [id number] Location/Status: [facility] Mnemonic/Ordering Site: [facility] Ordering Physician: KAREN VELAZQUEZ MD [facility] Screening Digital - 09/01/21 - 1018 EXAM: [facility] Screening Digital EXAM DATE AND TIME: 09/01/2021 10:19 AM HISTORY: Baseline screening mammography COMPARISON: None TECHNIQUE: CC and MLO views of both breasts were obtained using fullfield digital mammography. Bilateral digital breast tomosynthesis was performedin the MLO projection. Computer aided detection with the [employer]-Socialbombas employed. TISSUE DENSITY: b. There are scattered areas of fibroglandular density. FINDINGS: There is a macrolobulated partially obscured mass measuring 9 x 13 x 13 mmat the 12 o'clock position of the left breast. There is a intramammary lymphnode with clearly depicted fatty desiree in the posterior superior left breast.There are benign calcifications present bilaterally. No groupedmicrocalcifications or areas of architectural distortion are seen. The skin and vascularityare unremarkable. IMPRESSION: Macrolobulated mass lesion at the 12 o'clock position of the left breast measuring 9 x 13 x 13 mm requiring CC tomographic imaging. Ultrasound ofthe left breast will be performed pending evaluation with CC tomography. A negative mammogram in the presence of a clinically suspicious palpable abnormality does not preclude the possibility of malignancy or alter the indications for biopsy. BI-RADS: Category 0: Incomplete - Need Additional Imaging Evaluation RECOMMENDATION(S): 1: Special mammographic view(s) needed LEFT as soon as possible [id number], [id number], 7025F Dictating Physician: NINI COPELAND MD Electronically Signed by: NINI COPELAND MD Dic Date/Time: 09/01/21 1104 Sign date/Time: 09/01/21 1116 us Karen Velazquez MD IMG BI PROCEDURES Final Resul t from Last 3 Months or Most Recently Relevant to Health Maintenance Care Teams Animal Herder Relationship Specialty Start Date End Date Karen Velazquez MD [address] [facility] [address] [place], [place] PCP - General Internal Medicine 03/17/20
[2024-12-15 10:40] VITALS: BMI 33.4
[2024-12-22] VITALS (8 sets, daily range): BP systolic 104–139; BP diastolic 61–73; PULSE 59–67; RESP 16–18; TEMP 36.3–37.1; O2SAT 100; BMI 35.1
[2024-12-22] MEDS: Lactated Ringers 1,000 ML 100 ML IVCONT (12:08)
--- NOTE | 2024-12-22 13:36 | P.CONAN_ITS ---
Documented by User: Paola Tran NP 12/21/24 09:47 HPI - Anesthesia Eval Consult details Narrative: 44yo F for Bilateral Lateral Rectus Eye Muscle Recession, 12/22/24 Medically optimized per PCP Cardiac w/u [id number] for palpitations, syncope with nml ILR, echo, tilt table. Symptoms improved with healthy lifestyle changes. Episodes thought to be vagal related PMFSH Active Problems Active Problems: All Active Problems Endometrial polyp (Acute) Abnormal uterine bleeding (Acute) Past Medical History Medical History (Updated 12/15/24 @ 10:57 by Tran Ferrari, BERTO) History of anemia Panic attacks Depression Anxiety History of palpitations HTN (hypertension) History of cardiac monitoring Surgical History Surgical History (Updated 12/15/24 @ 10:58 by Tran Ferrari RN) History of loop recorder (~2022) Hx of breast biopsy Hx of section Hx of tubal ligation Social History Social History Are you a primary primary care sales representative to a significant other at home: No Do you presently have visiting nurse or other home services: No Alcohol intake: never Patient Tobacco Use Status: Never used Tobacco Use of substances other than those prescribed or required for medical reasons: No Have you been hit, kicked, punched, or otherwise hurt by someone within the past year? If so, by whom?: No Are you DNR?: No Advance Directives: No Advance Directives Information Provided: Yes Advance Directives on File: No Patient : No : No Poor oral hygiene: No Meds Allergies Allergy/AdvReac Type Severity Reaction Status Date / Time seafood Allergy Intermediate sob, rash Verified 12/15/24 10:37 Home Medications ?Medication ?Instructions ?Recorded ?Confirmed ?Last Taken ?Type ferrous sulfate 325 mg (65 mg 325 mg PO DAILY 12/15/24 12/15/24 Unknown History iron) tablet (Iron (ferrous sulfate)) Exam Height,Weight and Vital Signs: Height 5 ft 1 in Weight 80.286 kg Narrative Narrative: EKG 11/2024 NSR @ 68 Assessment and Plan Assessment Anesthesia Assessment: Chart Reviewed Documented by User: Shanta Schmidt DO 12/22/24 13:37 [facility] Past Medical History Medical History (Updated 12/15/24 @ 10:57 by Tran Ferrari, RN) History of anemia Panic attacks Depression Anxiety History of palpitations HTN (hypertension) History of cardiac monitoring Family History Family history of problems with anesthesia: No Surgical History Surgical History (Updated 12/15/24 @ 10:58 by Tran Ferrari, BERTO) History of loop recorder (~2022) Hx of breast biopsy Hx of section Hx of tubal ligation History of Problems with Anesthesia: No Social History Social History Are you a primary primary care sales representative to a significant other at home: No Do you presently have visiting nurse or other home services: No Alcohol intake: never Patient Tobacco Use Status: Never used Tobacco Use of substances other than those prescribed or required for medical reasons: No Have you been hit, kicked, punched, or otherwise hurt by someone within the past year? If so, by whom?: No Are you DNR?: No Advance Directives: No Advance Directives Information Provided: Yes Advance Directives on File: No Patient : No : No Poor oral hygiene: No Meds Allergies Allergy/AdvReac Type Severity Reaction Status Date / Time seafood Allergy Intermediate sob, rash Verified 12/15/24 10:37 Home Medications ?Medication ?Instructions ?Recorded ?Confirmed ?Last Taken ?Type ferrous sulfate 325 mg (65 mg 325 mg PO DAILY 12/15/24 12/15/24 Unknown History iron) tablet (Iron (ferrous sulfate)) Exam Exam Date and Time: 12/22/24 1330 Height,Weight and Vital Signs: Height 5 ft 1 in Weight 80.286 kg Vital Signs Temperature 97.3 F 12/22/24 11:56 Pulse Rate 66 12/22/24 11:56 Respiratory Rate 16 12/22/24 11:56 Blood Pressure 139/73 12/22/24 11:56 Pulse Oximetry 100 12/22/24 11:56 Oxygen Delivery Method Room Air 12/22/24 11:56 Temperature 97.3 F 12/22/24 11:56 Pulse Rate 66 12/22/24 11:56 Respiratory Rate 16 12/22/24 11:56 Blood Pressure 139/73 12/22/24 11:56 Pulse Oximetry 100 12/22/24 11:56 Oxygen Delivery Method Room Air 12/22/24 11:56 Airway Mallampati Class: I TM Dist: >3cm Neck ROM: Full Loose/Missing/Broken Teeth: Yes (several missing teeth) Heart: S1S2 Lungs: CTAB Assessment and Plan Assessment Anesthesia Assessment: Anesthesia Plan Discussed and Chart Reviewed Final Anesthetic Review Family History of Problems with Anesthesia: No History of Problems with Anesthesia: No NPO: Yes ASA Class: II Final Preanesthetic Review: No Changes in Pt Med Stat, Meds/Allgs Chart Reviewed, Consent Obtained/Reviewed and Anes Risks/Benef Reviewed Patient Risk: Low Procedure Risk: Low Anesthetic Plan Anesthetic Plan: GA and Agree w/ Assess. and Plan Disposition: Standard PACU
--- NOTE | 2024-12-22 14:35 | HO.OPHTHAL ---
Ophthalmology Operative Note Date of Service: 12/22/24 Narrative: Diagnosis exotropia. Postoperative diagnosis same. Procedure bilateral lateral rectus recessions of [address] Sanchez. Anesthesia general. Complications none. The patient was brought to the operating room placed under general anesthesia. The eyes were prepped and draped in the usual sterile ophthalmic fashion. A lid speculum was placed in the right eye and incisions made at bare sclera in the inferotemporal fornix. The lateral rectus was hooked and secured with a double-armed Vicryl suture. It was disinserted from the globe and reattached to a position 8 mm behind the original insertion. Conjunctiva was closed with interrupted Vicryl sutures. An identical procedure was then performed on the left eye. The patient was then awoken from general anesthesia and discharged to postoperative recovery in good condition.
== END 2024-12-22 15:54 | disposition home or self-care (01) ==
PROVIDERS: PCP Internal Medicine; Visit Provider Ophthalmology
PROC: (CPT 67311; principal; 2024-12-22 13:30)
DX: H50.15 Alternating exotropia (principal); I10 Essential (primary) hypertension; I45.81 Long QT syndrome; D50.9 Iron deficiency anemia, unspecified; F41.9 Anxiety disorder, unspecified; F41.0 Panic disorder [episodic paroxysmal anxiety]; F32.A Depression, unspecified; Z98.890 Other specified postprocedural states; Z79.899 Other long term (current) drug therapy
CPT/HCPCS: 67311; J1100; J1885; J2003; J2250; J2405; J2704; J3010